=== PATIENT | female | born 2000 | race Two or more races ===

== ENCOUNTER 2024-05-31 14:31 | Outpatient (AMB) | payer MEDICAID, SELFPAY ==
[2024-05-31 14:46] VITALS: BP 113/75; PULSE 86; RESP 16; TEMP 36.8; O2SAT 98; BMI 35.2
--- NOTE | 2024-05-31 14:46 | ACNOTE_ITS ---
Vital Signs 05/31/24 14:46 Height 1.55 m Height Method Stated Weight 84.425 kg Weight Measurement Method Standing Scale BMI 35.2 BP 113/75 Blood Pressure Source Automatic Cuff Blood Pressure Location Left Upper Arm Position Sitting Respiration 16 Pulse 86 Pulse Source Monitor Temp 98.2 F Temp Source Oral Pulse Oximetry (%) 98 Oxygen Delivery Method Room Air Allergies/Meds Allergies & Medications Allergies ciprofloxacin (From Cipro) Allergy (Verified 05/31/24 14:48) numbness Medication Reconciliation prenat.vits,ramírez,hyd-skwj-kgijd 1 tab PO QDAY 04/26/20 [History Confirmed 05/31/24] docusate sodium 100 mg capsule (Colace) 100 mg PO BID #60 caps 06/25/23 [Rx Confirmed 05/31/24] ibuprofen 800 mg tablet 800 mg PO Q6H PRN pain #120 tabs 06/25/23 [Rx Confirmed 05/31/24] lanolin 50 % topical ointment 1 applic topical TID PRN skin irritation #15 tubes 06/25/23 [Rx Confirmed 05/31/24] cholecalciferol (vitamin D3) 1,250 mcg (50,000 unit) capsule 1,250 mcg PO QWEEK 12 weeks #12 caps 05/31/24 [Rx] drospirenone 3 mg-ethinyl estradiol 0.03 mg tablet (Jerica (28)) 1 tab PO QDAY 28 days #28 tabs 05/31/24 [Rx] MA Intake Visit Data Collection Seen by Clinical Staff ONLY (RN/MA): No Pain Present Currently: No Pain scale:: 0 PCP or OBGYN visit in last 3 months: No Date of Last Menstrual Period: 05/31/24 Do You Feel Safe at Home: Yes Smoking Status Smoking Status: Never smoker Immunization / Flu Flu Vaccine in the Last 12 Months: No Flu Vaccine Exclusion Criteria: No Exclusion Criteria Past Medical History Past Medical History NEUROLOGIC: Negative Neurological Disorders CARDIAC: Negative Cardiac Disorders, Congestive Heart Failure or Hypertension RESPIRATORY: Negative Chronic Obstructive Pulmonary Disease (COPD) GASTROINTESTINAL: Negative Gastrointestinal Disorders or Hepatitis GENITOURINARY: Positive Genitourinary Disorders; Negative Renal Disease REPRODUCTIVE: Positive Previous Pregnancies; Negative Pelvic Inflammatory Disease ENT: Negative Glaucoma ENDOCRINE: Negative Endocrine Disorders, Diabetes Mellitus Type 1 or Diabetes Mellitus Type 2 HEMATOLOGIC: Negative Blood Disorders PSYCHO/SOCIAL: Positive Anxiety OTHER HISTORY: Positive Hospitalization and Chicken Pox; Negative Autoimmune Disease, Down Syndrome, Developmental Delay, Falls, Blood Transfusions, Blood Transfusion Reaction, Anesthesia Reactions, Organ Transplant, Chemotherapy, Radiation Therapy, Hyperbaric Therapy, MRSA, VRSA, Vancomycin-Resistant Enterococci, Human Immunodeficiency Virus (HIV), Measles, Mumps, Rubella (Icelandic Measles), Pertussis, Clostridium Difficile or Cancer Family History FAMILY HISTORY: Negative Family Psychiatric Problems, Family Respiratory Disorders, Family Cardiac Disorders, Family Gastrointestinal Problems, Family Cancer, Family Surgery or Family Anesthesia Reaction Surgical History SURGICAL: Negative Organ Transplant Social History SMOKING STATUS: Smoking status: Never smoker SECOND HAND EXPOSURE: second hand exposure: No ALCOHOL: Alcohol Intake: Never HOUSING: Housing: Apartment LIVES WITH: Lives With: Children and Spouse Patient Portal Questionaires Social History Living Situation History Housing: Apartment Tobacco History Smoking Status: Never smoker Second Hand Smoke Exposure: No Alcohol History Alcohol Intake: Never Domestic Abuse History Do You Feel Safe at Home: Yes Review of Systems Report any current symptoms Only answer those that you have currently: Past Medical History Past Medical History Have you ever been diagnosed with any of the following: Cardiology Problems Congestive Heart Failure: No Hypertension: No Respiratory Problems Chronic Obstructive Pulmonary Disease (COPD): No Stomache/Intestinal Problems Hepatitis: No Genital/Urinary Problems Renal Disease: No Reproductive Problems Pelvic Inflammatory Disease: No Previous Pregnancies: Yes Head,Eye,Nose,Throat Problems Glaucoma: No Endocrine Problems Diabetes Mellitus Type 1: No Diabetes Mellitus Type 2: No Psychologic Problems Anxiety: Yes Other Problems Hospitalization: Yes Autoimmune Disease: No Down Syndrome: No Developmental Delay: No Falls: No Blood Transfusions: No Blood Transfusion Reaction: No Anesthesia Reactions: No Organ Transplant: No Chemotherapy: No Radiation Therapy: No Hyperbaric Therapy: No MRSA: No VRSA: No Vancomycin-Resistant Enterococci: No Human Immunodeficiency Virus (HIV): No Chicken Pox: Yes Measles: No Mumps: No Rubella (Icelandic Measles): No Pertussis: No Clostridium Difficile: No Cancer: No History of Present Illness HPI Narrative Patient presents to clinic for follow-up of routine labs that were drawn in January 2024. Labs were significant for elevated total cholesterol 216, triglycerides 263, LDL 129. A1c 5.4 and vitamin D 16.8. Vital signs si gnificant for weight gain with BMI increasing from 32.9, now 35.2. Patient endorses not watching her diet and snacking during the holidays, but overall has incorporated dietary and lifestyle modifications, including CrossFit and exercising 5 times per week. She has resumed her diet/lifestyle modifications and exercise regimen. She feels that the exercising has decreased joint pains/muscle aches as well as relieving her stress/anxiety. Review of systems was negative. Patient also endorses wanting to start oral contraceptive pills. For obesity, patient is interested in starting a GLP-1. Review of Systems Review of Systems Systems Reviewed: All systems reviewed, normal except as documented Objective/Exam Narrative Physical exam: Gen: AAOx3, pleasant to speak with HEENT: NCAT, PERRLA, EOMI, MMM, no LAD CVS: normal S1, S2. RRR. No MRG Resp: CTA B/L. No rhonchi, rales, crackles or wheezing Abd: soft, non-tender, obese abd. BS+ in all 4 quadrants MSK: Good ROM in BUE & BLE. No edema or rash. Neuro: CN II-XII grossly intact. Strength 5/5 in BUE & BLE. Psych: appropriate mood and affect. Assessment & Plan Diagnosis / Problem List (1) Vitamin D deficiency: Status: Acute Assessment & Plan: Vitamin D noted to be 16.8 Plan: Will start patient on 50,000 IU weekly x 12 weeks and repeat vitamin D level (2) Oral contraception initiation: Status: Acute Assessment & Plan: Patient requesting to start OCPs to prevent unwanted . Discussed several options including IUDs however patient does not want something inserted inside of her due to feeling anxious about it moving through my body . Plan: Will order drospirenone?ethinyl estradiol 3-0.03 mg (Jerica) Discussed risks of weight gain and VTE, which patient understood (3) Obesity (BMI 30-39.9): Status: Acute Assessment & Plan: Patient has gained weight since last visit, with a BMI increasing to 35.2 from 32.9 Plan: Patient has incorporated dietary and lifestyle modifications, including portion control, CrossFit and exercising 5 times per week. She endorses the holidays as a time period where she was not following a strict dietary regimen, and likely contributed to weight gain Patient has shown interest in starting a GLP-1 in addition to her dietary/lifestyle modifications. Will continue diet/lifestyle modifications and discuss potentially starting GLP-1 at next visit (4) Hyperlipidemia: Status: Acute Qualifiers: Hyperlipidemia type: mixed hyperlipidemia Qualified Code(s): E78.2 - Mixed hyperlipidemia Assessment & Plan: Total cholesterol 216, triglycerides 263, LDL 129, HDL 40 Plan: Elevated lipid panel Patient recently started her dietary plan and resume working out after the holidays. She would like to avoid an additional medication and would like follow-up lipid panel in 3 months to evaluate cholesterol/triglycerides. If levels continue to worsen, she has agreed to start a statin. Will continue to monitor for now and repeat labs in 3 months Plan Cholecalciferol weekly for vitamin D deficiency Start Jerica OCPs Will discuss further in regards to starting a GLP-1 Patient to continue with diet/lifestyle modifications and repeat lipid panel in 3 months Additional Assessment Internal Medicine Attending Note: Case discussed with and agree with note and management plan of Resident Physician as per Resident's Note above. Issues of concern for present visit are as follows: Follow-up visit. Review of labs. Patient with hypovitaminosis D, we will supplement. Patient's body mass index has increased to 35.2. Patient has incorporated dietary and lifestyle modifications to try to lose weight. Was not following strict dietary regimen over holidays. Patient is interested in trialing a GLP-1 in addition to diet and lifestyle changes. Continue with modifications for now will consider GLP-1 at next visit. Cholesterol levels noted to be elevated, continue with diet and lifestyle measures to see if can lower numbers. Patient interested in starting oral contraceptive for prevention. Risks benefits reviewed. We will start patient on a low-dose combination pill. Family history negative for breast or gynecologic cancer. River Scanlon MD Physician Billing Established Patient Established Patient: E/M Level 3-CPT 80033 Office Procedures [facility] Level of Care Nursing/Assessment Patient Status: Established Patient Nursing Assessment/Reassessment: Medication Reconciliation, Update PMH in EMR and Vital Signs Coordination of Care: Complex Care and Chronic Disease 1-5, Consent,records obtained, informed consent, Education Simp Pt/Fam, Results/Orders obtained and Staff clarify orders Established Patient Charge Established Patient Point Assignment: 90 Established Patient Point Charge: Level 3 (80-115)
== END 2024-05-31 16:00 | disposition home or self-care (01) ==
LOC: HODAHC 14:31
PROVIDERS: Supervising Provider Internal Medicine; Visit Provider Student in an Organized Health Care Education/Training Program
DX: E55.9 Vitamin D deficiency, unspecified (principal); E66.9 Obesity, unspecified; Z68.35 Body mass index [BMI] 35.0-35.9, adult; Z30.011 Encounter for initial prescription of contraceptive pills; E78.2 Mixed hyperlipidemia
CPT/HCPCS: 99213; G0463

== ENCOUNTER 2025-02-01 13:58 | Outpatient (AMB) | payer MEDICAID, SELFPAY ==
[2025-02-01 14:18] VITALS: BP 117/79; PULSE 97; RESP 17; TEMP 36.7; O2SAT 97; BMI 32.6
--- NOTE | 2025-02-01 14:18 | ACNOTE_ITS ---
Vital Signs 02/01/25 14:18 Height 1.55 m Height Method Stated Weight 78.528 kg Weight Measurement Method Standing Scale BMI 32.6 BP 117/79 Blood Pressure Source Automatic Cuff Blood Pressure Location Left Upper Arm Position Sitting Respiration 17 Pulse 97 Pulse Source Monitor Temp 98.0 F Temp Source Oral Pulse Oximetry (%) 97 Oxygen Delivery Method Room Air Allergies/Meds Allergies & Medications Allergies ciprofloxacin (From Cipro) Allergy (Verified 02/01/25 14:19) numbness Medication Reconciliation No Known Home Medications 02/01/25 [History Confirmed 02/01/25] MA Intake Visit Data Collection New Patient or Established: Established Patient (seen at [facility] within 3 years) Seen by Clinical Staff ONLY (RN/MA): No Pain Present Currently: No Pain scale:: 0 Pain Scale Used: Harden-Sharif/Numerical PCP or OBGYN visit in last 3 months: No Smoking Status Smoking Status: Never smoker Immunization / Flu Flu Vaccine in the Last 12 Months: No Flu Vaccine Exclusion Criteria: No Exclusion Criteria Past Medical History Past Medical History NEUROLOGIC: Negative Neurological Disorders CARDIAC: Negative Cardiac Disorders, Congestive Heart Failure or Hypertension RESPIRATORY: Negative Chronic Obstructive Pulmonary Disease (COPD) GASTROINTESTINAL: Negative Gastrointestinal Disorders or Hepatitis GENITOURINARY: Positive Genitourinary Disorders; Negative Renal Disease REPRODUCTIVE: Positive Previous Pregnancies; Negative Pelvic Inflammatory Disease ENT: Negative Glaucoma ENDOCRINE: Negative Endocrine Disorders, Diabetes Mellitus Type 1 or Diabetes Mellitus Type 2 HEMATOLOGIC: Negative Blood Disorders PSYCHO/SOCIAL: Positive Anxiety OTHER HISTORY: Positive Hospitalization and Chicken Pox; Negative Autoimmune Disease, Down Syndrome, Developmental Delay, Falls, Blood Transfusions, Blood Transfusion Reaction, Anesthesia Reactions, Organ Transplant, Chemotherapy, Radiation Therapy, Hyperbaric Therapy, MRSA, VRSA, Vancomycin-Resistant Enterococci, Human Immunodeficiency Virus (HIV), Measles, Mumps, Rubella (Vincentian Measles), Pertussis, Clostridium Difficile or Cancer Family History FAMILY HISTORY: Negative Family Psychiatric Problems, Family Respiratory Disorders, Family Cardiac Disorders, Family Gastrointestinal Problems, Family Cancer, Family Surgery or Family Anesthesia Reaction Surgical History SURGICAL: Negative Organ Transplant Social History SMOKING STATUS: Smoking status: Never smoker SECOND HAND EXPOSURE: second hand exposure: No ALCOHOL: Alcohol Intake: Never HOUSING: Housing: Apartment LIVES WITH: Lives With: Children and Spouse Patient Portal Questionaires Social History Living Situation History Housing: Apartment Tobacco History Smoking Status: Never smoker Second Hand Smoke Exposure: No Alcohol History Alcohol Intake: Never Review of Systems Report any current symptoms Only answer those that you have currently: Past Medical History Past Medical History Have you ever been diagnosed with any of the following: Cardiology Problems Congestive Heart Failure: No Hypertension: No Respiratory Problems Chronic Obstructive Pulmonary Disease (COPD): No Stomache/Intestinal Problems Hepatitis: No Genital/Urinary Problems Renal Disease: No Reproductive Problems Pelvic Inflammatory Disease: No Previous Pregnancies: Yes Head,Eye,Nose,Throat Problems Glaucoma: No Endocrine Problems Diabetes Mellitus Type 1: No Diabetes Mellitus Type 2: No Psychologic Problems Anxiety: Yes Other Problems Hospitalization: Yes Autoimmune Disease: No Down Syndrome: No Developmental Delay: No Falls: No Blood Transfusions: No Blood Transfusion Reaction: No Anesthesia Reactions: No Organ Transplant: No Chemotherapy: No Radiation Therapy: No Hyperbaric Therapy: No MRSA: No VRSA: No Vancomycin-Resistant Enterococci: No Human Immunodeficiency Virus (HIV): No Chicken Pox: Yes Measles: No Mumps: No Rubella (Vincentian Measles): No Pertussis: No Clostridium Difficile: No Cancer: No History of Present Illness HPI Narrative Moraima Rea is a 24-year-old female with past medical history of hyperlipidemia and obesity who presents to the [facility] for follow-up. She was previously seen earlier this year and labs were significant for total cholesterol 216, triglycerides 263, LDL 129, A1c 5.4%, and low vitamin D. BMI had increased from 32.9 to 35.2, but has since decreased to 32.6 with exercise regimen and trying to fix her diet. She has no complaints at this time and is in agreement to continue with lifestyle modifications and obtain a lipid panel to see how she has progressed given that she has lost 6 kg since last visit. Otherwise, she is curious about OCPs and will send referral to [facility] since she can get age-appropriate screening as well. Review of Systems Review of Systems Systems Reviewed: All systems reviewed, normal except as documented Objective/Exam Narrative Physical exam: General: AOx3, no acute distress, able to speak full sentences HEENT: NC/AT, mucous membranes moist, bilateral sclera anicteric Cardiovascular: regular rate and rhythm, S1/S2 present, no murmurs appreciated Pulmonary: clear to auscultation bilaterally, no rales/rhonchi/wheezes Abdominal: soft, non-tender, non-distended, no rebound/guarding, normal bowel sounds present Musculoskeletal: normal ROM, no peripheral edema Skin: warm and dry, intact, no rashes Neuro: CN II-XII intact, no focal deficits Assessment & Plan Diagnosis / Problem List (1) Vitamin D deficiency: Status: Acute Assessment & Plan: Vitamin D noted to be 16.8 during previous visit and will follow-up with repeat labs Plan: - Follow-up on labs (2) Oral contraception initiation: Status: Acute Assessment & Plan: Requesting to start OCPs to prevent unwanted . Discussed several options including IUDs, however does not want something inserted inside of her due to feeling anxious about it moving through my body . Will send referral to [facility] for further evaluation and for age-appropriate screening. Plan: - [employer] referred (3) Obesity (BMI 30-39.9): Status: Acute Assessment & Plan: Gained weight at last visit but has since lost approximately 6 kg since then with exercise regimen. Discussed option of GLP-1 agonist but is not interested in them at this time. Plan: - Continue current exercise regimen - Follow-up lipid panel (4) Hyperlipidemia: Status: Acute Qualifiers: Hyperlipidemia type: mixed hyperlipidemia Qualified Code(s): E78.2 - Mixed hyperlipidemia Assessment & Plan: Continue exercise regimen at this time and will hold off on statin if lipid panel improves Plan: - Follow-up lipid panel Orders: Referrals [employer] [id number] - Encounter for initial prescription of contraceptive pills Office Procedures [facility] Level of Care Nursing/Assessment Patient Status: Established Patient Nursing Assessment/Reassessment: Medication Reconciliation, Update PMH in EMR and Vital Signs Coordination of Care: Complex Care and Chronic Disease 1-5, Education Complex Pt/Fam, Lab and Imaging orders, Results/Orders obtained and Staff clarify orders Established Patient Charge Established Patient Point Assignment: 105 Established Patient Point Charge: EP Level 3 (80-115)
== END 2025-02-01 15:05 | disposition home or self-care (01) ==
LOC: HODAHC 13:58
PROVIDERS: Supervising Provider Internal Medicine; Visit Provider Internal Medicine
DX: E55.9 Vitamin D deficiency, unspecified (principal); E66.9 Obesity, unspecified; Z68.32 Body mass index [BMI] 32.0-32.9, adult; E78.5 Hyperlipidemia, unspecified
CPT/HCPCS: 99213; G0463